=== PATIENT | female | born 1990 | race Caucasian/White ===

== ENCOUNTER 2020-04-06 10:39 | Emergency (ER) | payer MEDICAID ==
[~2020-04-06] VITALS: Ht 157.5 cm; Wt 51.7 kg
[~2020-04-06 10:39] MED LIST: GUAIFENESI100 MG/5 M ORAL; TAMIFLU75 MG ORAL
[2020-04-06 11:00] VITALS: BP 122/84
[2020-04-06] MEDS ORDERED: Acetaminophen 500mg (ES) tab ORAL ONE (11:15)
[2020-04-06 11:31] LABS: APPEARANCE,URINE CLEAR; BILIRUBIN, URINE NEGATIVE (NEGATIVE); COLOR,URINE PALE YELLOW; GLUCOSE, URINE (UA) NEGATIVE (NEGATIVE); KETONES,URINE NEGATIVE (NEGATIVE); LEUKOCYTE ESTERASE ,URINE 1+ (NEGATIVE); NITRITE,URINE NEGATIVE (NEGATIVE); PH,URINE 7 (4.5-8.0); PROTEIN,URINE NEGATIVE (NEGATIVE); UROBILINOGEN,URINE NORMAL MG/DL (0.0-1.0)
--- NOTE | 2020-04-06 11:53 | Emergency Room Report ---
History of Present Illness General Chief Complaint: Pain Source: Patient Present Illness HPI 29-year-old female presents complaining of pain. States she has pain to her right flank. Has had the pain since August 2019. Comes and goes. Episodes last for 24 hours then subside. Gets 2-3 episodes a month. States she has had work-ups including a pelvic ultrasound at another hospital a few weeks ago which were unremarkable. Pain is dull, 6 out of 10, nonradiating. Denies nausea or vomiting. Denies fevers or chills. Denies dysuria hematuria. No other aggravating relieving factors. 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 Patient History Past Medical History: none Past Surgical History: none Pertinent Family History: none Social History: Denies: smoking, alcohol use, drug use Last Menstrual Period: on Depo Shot Now: No Immunizations: UTD Reviewed Nursing Documentation: PMH: Agreed; PSxH: Agreed Nursing Documentation-PMH Past Medical History: No Stated History Review of Systems All Other Systems: negative except mentioned in HPI Physical Exam Vital Signs Date Time Temp Pulse Resp B/P (MAP) Pulse Ox O2 Delivery O2 Flow Rate FiO2 04/06/20 10:51 98.2 81 15 125/81 (96) 99 Room Air Sp02 EP Interpretation: reviewed, normal General Appearance: no apparent distress, alert, GCS 15, non-toxic Head: normocephalic, atraumatic Eyes: bilateral eye normal inspection, bilateral eye PERRL ENT: hearing grossly normal, normal pharynx, no angioedema, normal voice Neck: full range of motion, supple/symm/no masses Respiratory: chest non-tender, lungs clear, normal breath sounds, speaking full sentences Cardiovascular #1: regular rate, rhythm, no edema Cardiovascular #2: 2+ carotid (R), 2+ carotid (L), 2+ radial (R), 2+ radial (L) , 2+ dorsalis pedis (R), 2+ dorsalis pedis (L) Gastrointestinal: normal bowel sounds, non tender, soft, non-distended, no guarding, no rebound Rectal: deferred Genitourinary: normal inspection, CVA tenderness (R) Musculoskeletal: back normal, normal range of motion, gait/station normal, non- tender Neurologic: alert, motor strength/tone normal, oriented x3, sensory intact, responsive, speech normal Psychiatric: judgement/insight normal, memory normal, mood/affect normal, no suicidal/homicidal ideation Reflexes: 3+ bicep (R), 3+ bicep (L), 3+ tricep (R), 3+ tricep (L), 3+ knee (R) , 3+ knee (L) Skin: no rash Lymphatic: no adenopathy Medical Decision Making Diagnostic Impression: Primary Impression: Hydronephrosis Qualified Codes: N13.30 - Unspecified hydronephrosis ER Course Hospital Course 29-year-old F presents to ED with R flank pain Differential diagnosis includes-appendicitis, cholecystitis, kidney stone, pyelonephritis Clinical course Patient placed on stretcher. After initial history and physical I ordered labs , IV fluids, pain medications and ABD US Labs - no leukocytosis, electrolytes ok, LFTs normal, UA - hematuria, no UTI ABD US - large R hydronephrosis CT scan shows right-sided hydronephrosis. No hydroureter. No obvious stone. Narrowing at [facility]. discussed findings with patient. discussed with urology. likely congenital. needs outpatient workup. tri tinoco she has a PMD. i'll provide CT report I feel this is a highly complex case requiring extensive working including EKG/ Rhythm strip, Xray/CT/US, Blood/urine lab work, repeat exams while in ED, and administration of strong opiates/narcotics for pain control, admission to hospital or close patient follow up. Diagnosis - hydronephrosis Stable and discharged to home. Followup with PMD/urology. Return to ED if symptoms recur or worsen Labs Test 04/06/20 11:05 Urine Color Pale yellow Urine Appearance Clear Urine pH 7 (4.5-8.0) Urine Specific [place] 1.010 (1.005-1.035) Urine Protein Negative (NEGATIVE) Urine Glucose (UA) Negative (NEGATIVE) Urine Ketones Negative (NEGATIVE) Urine Blood 2+ (NEGATIVE) Urine Nitrite Negative (NEGATIVE) Urine Bilirubin Negative (NEGATIVE) Urine Urobilinogen Normal MG/DL (0.0-1.0) Urine Leukocyte Esterase 1+ (NEGATIVE) Urine RBC 2-4 /HPF (0 - 2) Urine WBC 5-10 /HPF (0 - 2) Urine Squamous Epithelial Cells Occasional /LPF Urine Amorphous Sediment Moderate /LPF (NONE) Urine Bacteria Few /HPF (NONE) Urine HCG, Qualitative Negative (NEGATIVE) CT/MRI/US Diagnostic Results CT/MRI/US Diagnostic Results #1: Imaging Test Ordered: ABD US Impression Procedure: US ABD Complete EXAM: ULTRASOUND US ABD Complete CLINICAL HISTORY: Abdominal pain. COMPARISON: None TECHNIQUE: Ultrasound examination of the abdomen includes grayscale images, and color and spectral doppler analysis. FINDINGS: Liver is mostly homogeneous except for a tiny echogenic focus approximately 5 mm in the right lobe perhaps a tiny hemangioma. There is no ductal dilatation. Spleen is within normal limits. The gallbladder is without sludge or stone. Common bile duct measures 3 mm. The pancreas is unremarkable to the extent visualized. There is severe right hydronephrosis. Left kidney is unremarkable. Aorta and cava are within normal limits. Bladder appears normally distended. Left ureteral jet seen but the right is absent. IMPRESSION: SEVERE RIGHT HYDRONEPHROSIS. TINY ECHOGENIC FOCUS IN THE RIGHT KIDNEY PERHAPS A TINY HEMANGIOMA. CT/MRI/US Diagnostic Results #2: Imaging Test Ordered: CT A/P Impression Procedure: CT Abdomen Pelvis WO Contrast EXAM: CT CT Abdomen Pelvis WO Contrast INDICATION: Right flank pain and nausea. COMPARISON: Ultrasound 04/06/2020 TECHNIQUE: Axial images were obtained through the abdomen pelvis without intravenous contrast. Sagittal and coronal reformats are generated. All CT scans at this facility are performed using dose modulation techniques as appropriate to a performed exam including the following: automated exposure control with adjustment of the mA and/or kV according to patient size. RADIATION DOSE: CTDIvol: 3.1 mGy DLP: 129.4 mGy-cm Dose information generated by the CT scanner is available in PACS. FINDINGS: The lung bases are clear. The liver and spleen are homogeneous. Gallbladder is without sludge or stone and there is no wall thickening. The pancreas is unremarkable. Adrenals are normal in morphology. Left kidneys unremarkable. Severe right hydronephrosis noted as seen on ultrasound. There is no hydroureter. Small bowel loops are nondistended. Mild increased stool lucencies noted throughout the colon. The appendix is normal. There is no free fluid or free air. No pathologic adenopathy demonstrated. Urinary bladder appears unremarkable. Uterus is midline with IUD in place. IMPRESSION: SEVERE RIGHT HYDRONEPHROSIS NOTED ON ULTRASOUND. THERE IS NO HYDROURETER DEMONSTRATED. QUESTION OBSTRUCTION AT THE [facility]. Dictated By: Urbano Monique MD Electronically Signed By: Urbano Monique MD Signed Date/Time 04/06/20 1337 Last Vital Signs Date Time Temp Pulse Resp B/P (MAP) Pulse Ox O2 Delivery O2 Flow Rate FiO2 04/06/20 11:00 98.2 71 16 122/84 99 Room Air Status: improved Disposition: HOME, SELF-CARE Condition: Stable Scripts Acetaminophen With Codeine (T#3) (TYLENOL #3 TAB*) Y Tab 1 TAB ORAL Q8H PRN for For Pain, #20 TAB Prov: Josh Barnett MD 04/06/20 Referrals: NOT CHOSEN [facility]/,REFERRING (PCP) Josh Barnett MD Apr 06, 2020 11:53
[2020-04-06 12:56] LABS: EOSINOPHILS % (AUTO) 0.7 % (0.0-3.0); HEMATOCRIT 39.8 % (37.0-47.0); HEMOGLOBIN 12.4 G/DL (12.0-16.0); LYMPHOCYTES % (AUTO) 24.4 % (20.0-45.0); MEAN CORPUSCULAR VOLUME 94 FL (80-99); MONOCYTES % (AUTO) 8.2 % (1.0-10.0); NEUTROPHILS % (AUTO) 65.6 % (45.0-75.0); PLATELET COUNT 210 K/UL (150-450); RED BLOOD COUNT 4.24 M/UL (4.20-5.40); RED CELL DISTRIBUTION WIDTH 13.7 % (11.6-14.8); WHITE BLOOD COUNT 5.3 K/UL (4.8-10.8)
--- NOTE | 2020-04-06 13:01 | Diagnostic Imaging Report ---
EXAM: ULTRASOUND US ABD Complete CLINICAL HISTORY: Abdominal pain. COMPARISON: None TECHNIQUE: Ultrasound examination of the abdomen includes grayscale images, and color and spectral doppler analysis. FINDINGS: Liver is mostly homogeneous except for a tiny echogenic focus approximately 5 mm in the right lobe perhaps a tiny hemangioma. There is no ductal dilatation. Spleen is within normal limits. The gallbladder is without sludge or stone. Common bile duct measures 3 mm. The pancreas is unremarkable to the extent visualized. There is severe right hydronephrosis. Left kidney is unremarkable. Aorta and cava are within normal limits. Bladder appears normally distended. Left ureteral jet seen but the right is absent. IMPRESSION: SEVERE RIGHT HYDRONEPHROSIS. TINY ECHOGENIC FOCUS IN THE RIGHT KIDNEY PERHAPS A TINY HEMANGIOMA.
[2020-04-06 13:08] LABS: ANION GAP 9 mmol/L (5-15); BLOOD UREA NITROGEN 14 mg/dL (7-18); CALCIUM 8.8 MG/DL (8.5-10.1); CARBON DIOXIDE 25 MMOL/L (21-32); CHLORIDE 104 MMOL/L (98-107); POTASSIUM 3.9 MMOL/L (3.5-5.1); SODIUM 138 MMOL/L (136-145)
[2020-04-06 13:12] LABS: ALANINE AMINOTRANSFERASE 12 U/L (12-78); ALBUMIN 3.9 G/DL (3.4-5.0); ALBUMIN/GLOBULIN RATIO 1.1 (1.0-2.7); ALKALINE PHOSPHATASE 34 U/L (46-116); ASPARTATE AMINO TRANSFERASE 15 U/L (15-37); BILIRUBIN,TOTAL 0.4 MG/DL (0.2-1.0)
--- NOTE | 2020-04-06 13:42 | Diagnostic Imaging Report ---
EXAM: CT CT Abdomen Pelvis WO Contrast INDICATION: Right flank pain and nausea. COMPARISON: Ultrasound 04/06/2020 TECHNIQUE: Axial images were obtained through the abdomen pelvis without intravenous contrast. Sagittal and coronal reformats are generated. All CT scans at this facility are performed using dose modulation techniques as appropriate to a performed exam including the following: automated exposure control with adjustment of the mA and/or kV according to patient size. RADIATION DOSE: CTDIvol: 3.1 mGy DLP: 129.4 mGy-cm Dose information generated by the CT scanner is available in PACS. FINDINGS: The lung bases are clear. The liver and spleen are homogeneous. Gallbladder is without sludge or stone and there is no wall thickening. The pancreas is unremarkable. Adrenals are normal in morphology. Left kidneys unremarkable. Severe right hydronephrosis noted as seen on ultrasound. There is no hydroureter. Small bowel loops are nondistended. Mild increased stool lucencies noted throughout the colon. The appendix is normal. There is no free fluid or free air. No pathologic adenopathy demonstrated. Urinary bladder appears unremarkable. Uterus is midline with IUD in place. IMPRESSION: SEVERE RIGHT HYDRONEPHROSIS NOTED ON ULTRASOUND. THERE IS NO HYDROURETER DEMONSTRATED. QUESTION OBSTRUCTION AT THE [facility].
[2020-04-06] MEDS ORDERED: ACETAMINOPHEN-1 EAC1 ORAL (14:01)
[2020-04-06 14:08] VITALS: BP 112/78
== END 2020-04-06 14:10 | disposition home or self-care (01) ==
LOC: EMR 11:43
DX: N13.30 Unspecified hydronephrosis (principal)
CPT/HCPCS: 36415; 74176; 76700; 80053; 81003; 81025; 83690; 85025; Z7502; 99284

== ENCOUNTER 2020-05-20 13:12 | Emergency (ER) | payer MEDICAID ==
[~2020-05-20] VITALS: Ht 157.5 cm; Wt 53.5 kg
[~2020-05-20 13:12] MED LIST changes: +ACETAMINOPHEN-1 EAC1 ORAL
[2020-05-20 13:23] VITALS: BP 113/72
--- NOTE | 2020-05-20 13:23 | NUR ---
ED Nurse Note: Pt walked in to ED from home c/o nausea, vomiting, right side pain x last night. Stated she has having a flare up. Pt was seen here last week and was diagnosed with hydronephrosis. Pt took Tylenol this AM for pain. AAOx4, verbally responsive. No SOB, on room air. Afebrile. ERPA at bedside.
[2020-05-20] MEDS ORDERED: Ketorolac 30mg Inj IV ONE (13:30)
--- NOTE | 2020-05-20 13:30 | NUR ---
ED Nurse Note: IV line established. Blood and urine sent to lab.
[2020-05-20 13:57] LABS: BASOPHILS % (AUTO) 0.9 % (0.0-2.0); EOSINOPHILS % (AUTO) 0.5 % (0.0-3.0); HEMATOCRIT 41.9 % (37.0-47.0); HEMOGLOBIN 13.4 G/DL (12.0-16.0); LYMPHOCYTES % (AUTO) 24.1 % (20.0-45.0); MEAN CORPUSCULAR VOLUME 92 FL (80-99); MONOCYTES % (AUTO) 7.9 % (1.0-10.0); NEUTROPHILS % (AUTO) 66.6 % (45.0-75.0); PLATELET COUNT 242 K/UL (150-450); RED BLOOD COUNT 4.54 M/UL (4.20-5.40); RED CELL DISTRIBUTION WIDTH 12.6 % (11.6-14.8); WHITE BLOOD COUNT 6.2 K/UL (4.8-10.8)
--- NOTE | 2020-05-20 14:02 | NUR ---
ED Nurse Note: US tech at bedside.
[2020-05-20 14:05] LABS: APPEARANCE,URINE CLEAR; BILIRUBIN, URINE NEGATIVE (NEGATIVE); COLOR,URINE PALE YELLOW; GLUCOSE, URINE (UA) NEGATIVE (NEGATIVE); KETONES,URINE NEGATIVE (NEGATIVE); LEUKOCYTE ESTERASE ,URINE NEGATIVE (NEGATIVE); NITRITE,URINE NEGATIVE (NEGATIVE); PH,URINE 6 (4.5-8.0); PROTEIN,URINE NEGATIVE (NEGATIVE); UROBILINOGEN,URINE NORMAL MG/DL (0.0-1.0)
[2020-05-20 14:10] LABS: ANION GAP 7 mmol/L (5-15); BLOOD UREA NITROGEN 13 mg/dL (7-18); CARBON DIOXIDE 28 MMOL/L (21-32); CHLORIDE 103 MMOL/L (98-107); CREATININE 1.1 MG/DL (0.55-1.30); POTASSIUM 3.9 MMOL/L (3.5-5.1); SODIUM 138 MMOL/L (136-145)
[2020-05-20 14:13] LABS: ALANINE AMINOTRANSFERASE 14 U/L (12-78); ALBUMIN 4.4 G/DL (3.4-5.0); ALBUMIN/GLOBULIN RATIO 1.2 (1.0-2.7); ALKALINE PHOSPHATASE 38 U/L (46-116); ASPARTATE AMINO TRANSFERASE 12 U/L (15-37); BILIRUBIN,TOTAL 0.5 MG/DL (0.2-1.0); CREATINE KINASE 84 U/L (26-308)
--- NOTE | 2020-05-20 15:04 | Diagnostic Imaging Report ---
Indication: Pain, elevated GFR, history of [facility] obstruction Technique: Ultrasound of the abdomen with duplex evaluation. Comparison: None Findings: Liver: The liver is normal in size and echogenicity. No focal abnormalities are noted. Flow is hepatopedal. Gallbladder: The gallbladder is normal. No stones are visualized. The wall is not thickened. Common bile duct: Normal in size. Pancreas: The visualized portion of pancreas is normal in echogenicity. There are no masses. Kidneys: Left kidney is unremarkable. Right kidney demonstrates moderate to severe hydronephrosis. Spleen: The spleen is normal in size and echogenicity. Aorta: The visualized portion of the aorta is normal in caliber. IVC: The demonstrated portion of the inferior vena cava is normal. Impression: Moderate to severe right hydronephrosis.
[2020-05-20 15:20] VITALS: BP 119/75
--- NOTE | 2020-05-20 15:20 | NUR ---
ER DISCHARGE NOTE: Patient is cleared to be discharged per ERPA, pt is aox4, on room air, with stable vital signs. pt was given dc and prescription instructions, pt was able to verbalize understanding. Patient ID band and IV removed. pt is able to ambulate with steady gait. pt took all belongings.
--- NOTE | 2020-05-20 15:43 | Emergency Room Report ---
History of Present Illness General Chief Complaint: Pain Source: Patient Present Illness HPI 29-year-old female with history of severe hydronephrosis of the right side who was seen at [facility] back in March 2020 and reports that she has been having about 3 episodes per month of hydronephrosis flareup since July here complaining of another flareup x2 days. Rates the pain 10 out of 10 right side with radiation to left side. Has been taking Tylenol 3 occasionally for pain and Motrin with minimal relief. Also complains of few bouts of nonbloody emesis today. Denies diarrhea, fever chills, chest pain, shortness of breath, headache and dizziness. Denies any urinary symptoms. Denies . Reports that she has an upcoming visit with legal billing coordinator a week from today. Patient is stable with stable vital signs. 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 Patient History Past Medical History: see triage record Past Surgical History: none Pertinent Family History: none Now: No Immunizations: UTD Reviewed Nursing Documentation: PMH: Agreed; PSxH: Agreed Review of Systems All Other Systems: negative except mentioned in HPI Physical Exam Vital Signs Date Time Temp Pulse Resp B/P (MAP) Pulse Ox O2 Delivery O2 Flow Rate FiO2 05/20/20 13:15 98.4 77 19 113/72 (86) 100 Room Air Sp02 EP Interpretation: reviewed, normal General Appearance: alert, GCS 15, non-toxic, mild distress Head: normocephalic, atraumatic Eyes: bilateral eye normal inspection, bilateral eye PERRL ENT: hearing grossly normal, normal pharynx, no angioedema, normal voice Neck: full range of motion, supple/symm/no masses Respiratory: chest non-tender, lungs clear, normal breath sounds, no rhonchi, no respiratory distress, no retraction, speaking full sentences Cardiovascular #1: regular rate, rhythm, no edema Gastrointestinal: non tender, soft, no mass, no organomegaly, no peritonitis, no bruit, non-distended, no guarding, no hernia, no pulsatile mass, no rebound Genitourinary: no CVA tenderness Musculoskeletal: back normal Neurologic: alert, motor strength/tone normal, oriented x3, sensory intact, responsive, speech normal Psychiatric: judgement/insight normal, memory normal, mood/affect normal, no suicidal/homicidal ideation Skin: no rash Lymphatic: no adenopathy Medical Decision Making PA Attestation All my diagnosis and treatment plans were reviewed ad discussed with my supervising physician Dr. Champion Diagnostic Impression: Primary Impression: Hydronephrosis ER Course 29-year-old female with history of severe hydronephrosis of the right side who was seen at [facility] back in March 2020 and reports that she has been having about 3 episodes per month of hydronephrosis flareup since July here complaining of another flareup x2 days. Rates the pain 10 out of 10 right side with radiation to left side. Has been taking Tylenol 3 occasionally for pain and Motrin with minimal relief. Also complains of few bouts of nonbloody emesis today. Denies diarrhea, fever chills, chest pain, shortness of breath, headache and dizziness. Denies any urinary symptoms. Denies . Reports that she has an upcoming visit with legal billing coordinator a week from today. Patient is stable with stable vital signs. Ddx considered but are not limited to: UTI, pyelonephritis, urinary incontinence , prolapsed bladder, severe hydronephrosis, mild to moderate hydronephrosis Vital signs: are WNL, pt. is afebrile H&PE are most consistent with: Moderate to severe hydronephrosis on the right side ORDERS: UA, urine cx, urine , CBC, CMP, lipase, PT and PTT, ultrasound renal pelvic, Tylenol 3, ibuprofen 800, Zofran ED INTERVENTIONS: NS bolus, Toradol, Zofran, Pepcid DISCHARGE: At this time pt. is stable for d/c to home. Will provide printed patient care instructions, and any necessary prescriptions. Care plan and follow up instructions have been discussed with the patient prior to discharge. Patient take medication as directed, follow-up primary care provider or legal billing coordinator, worsening symptoms return to the emergency room CT/MRI/US Diagnostic Results CT/MRI/US Diagnostic Results : Imaging Test Ordered: Renal ultrasound Impression Right-sided hydronephrosis Last Vital Signs Date Time Temp Pulse Resp B/P (MAP) Pulse Ox O2 Delivery O2 Flow Rate FiO2 05/20/20 13:23 98.4 89 19 113/72 100 Room Air Disposition: HOME, SELF-CARE Condition: Stable Scripts Acetaminophen With Codeine (T#3) (TYLENOL #3 TAB*) Y Tab 1 TAB ORAL BID PRN for For Pain, #10 TAB Prov: Jagruti Wiseman 05/20/20 Ibuprofen (Ibu) 800 Mg Tablet 800 MG PO TID, #30 TAB Prov: Jagruti Wiseman 05/20/20 Referrals: [facility],REFERRING (PCP) Patient Instructions: Hydronephrosis Additional Instructions: Take medication as directed, follow-up with your specialist, if worsening symptoms return to the emergency room Jagruti Wiseman May 20, 2020 15:43
[2020-05-20] MEDS ORDERED: IBU800 MG PO (15:44)
[2020-05-20] MEDS ORDERED: ACETAMINOPHEN-1 EAC1 ORAL (15:44)
[2020-05-20] MEDS ORDERED: ZOFRAN4 M1 ORAL (16:49)
== END 2020-05-20 15:50 | disposition home or self-care (01) ==
LOC: EMR 14:46
DX: N13.30 Unspecified hydronephrosis (principal)
CPT/HCPCS: 36415; 76700; 80053; 80307; 81003; 81025; 82550; 83690; 85025; 96361; 96374; 96375; G0480; J1885; J2405; J7030; S0028; Z7502; 99284